=== PATIENT | female | born 2000 | race Caucasian/White ===

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

== ENCOUNTER 2023-09-05 08:17 | Emergency (ER) | payer OTHER ==
[~2023-09-05] VITALS: Ht 157.5 cm; Wt 86.4 kg
[2023-09-05 08:19] VITALS: TEMP 99
[2023-09-05] MEDS: LORazepam 1 MG TABLET PO ONE (09:20)
[2023-09-05 12:15] VITALS: BP 135/78; PULSE 85; RESP 18
== END 2023-09-05 12:32 | disposition home or self-care (01) ==
LOC: EMS 08:17
DX: F41.9 Anxiety disorder, unspecified (principal); F32.A Depression, unspecified
CPT/HCPCS: 99283

== ENCOUNTER 2024-03-04 18:44 | Emergency (ER) | payer OTHER ==
[~2024-03-04] VITALS: Ht 162.6 cm; Wt 97.7 kg
[2024-03-04 19:02] LABS: COVID AG,FIA SOURCE NASAL SWAB
[2024-03-04 19:21] LABS: SARS-COV2 (COVID) ANTIGEN,FIA Negative (Negative)
[2024-03-04 19:25] LABS: INFLUENZA TYPE A NEGATIVE FOR TYPE A (NEGATIVE); INFLUENZA TYPE B NEGATIVE FOR TYPE B (NEGATIVE)
[2024-03-04] MEDS: IBUPROFEN 600 MG TABLET PO ONE (19:28)
[2024-03-04 20:00] VITALS: BP 134/83; PULSE 87; RESP 18; TEMP 98.7; O2SAT 98
== END 2024-03-04 20:03 | disposition home or self-care (01) ==
LOC: EMS 18:44
DX: J06.9 Acute upper respiratory infection, unspecified (principal); B97.89 Other viral agents as the cause of diseases classified elsewhere; J45.909 Unspecified asthma, uncomplicated; Z20.822 Contact with and (suspected) exposure to COVID-19
CPT/HCPCS: 87804; 99283

== ENCOUNTER 2025-01-12 00:40 | Emergency (ER) | payer OTHER ==
[~2025-01-12] VITALS: Ht 160 cm; Wt 94.8 kg
[2025-01-12] MEDS ORDERED: LIDO-57 TP (02:52)
[2025-01-12] MEDS ORDERED: CYCL-448 PO (02:52)
[2025-01-12] MEDS: KETOROLAC TROMETHAMINE 30 MG/ML VIAL IM ONE (03:02)
[2025-01-12] MEDS: LIDOCAINE 5% TRANSDERMAL PATCH TD ONE (03:02)
[2025-01-12 03:10] VITALS: BP 133/85; PULSE 72; RESP 15; TEMP 98.3; O2SAT 99
[2025-01-12] MEDS ORDERED: IBUP-1492 PO (17:44)
[2025-01-12] MEDS ORDERED: METH-659 PO (17:44)
== END 2025-01-12 04:48 | disposition home or self-care (01) ==
LOC: EMS 00:40
DX: S16.1XXA Strain of muscle, fascia and tendon at neck level, initial encounter (principal); F41.9 Anxiety disorder, unspecified; F32.A Depression, unspecified; V43.62XA Car passenger injured in collision with other type car in traffic accident, initial encounter; Y93.89 Activity, other specified; Y92.410 Unspecified street and highway as the place of occurrence of the external cause; Y99.8 Other external cause status
CPT/HCPCS: 99283; 72040; 96372; J1885

== ENCOUNTER 2025-01-12 14:03 | Emergency (ER) | payer OTHER ==
[~2025-01-12] VITALS: Ht 160 cm; Wt 94.0 kg
[~2025-01-12 14:03] MED LIST: CYCL-448 PO; LIDO-57 TP
[2025-01-12 14:20] VITALS: BP 110/63; PULSE 67; RESP 18; TEMP 98.2; O2SAT 99
[2025-01-12] MEDS: IBUPROFEN 600 MG TABLET PO ONE (15:32)
[2025-01-12] MEDS ORDERED: IBUP-1492 PO (17:44)
[2025-01-12] MEDS ORDERED: METH-659 PO (17:44)
== END 2025-01-12 18:02 | disposition home or self-care (01) ==
LOC: EMS 14:16
DX: S16.1XXA Strain of muscle, fascia and tendon at neck level, initial encounter (principal); F41.9 Anxiety disorder, unspecified; F32.A Depression, unspecified; V89.2XXA Person injured in unspecified motor-vehicle accident, traffic, initial encounter; Y93.89 Activity, other specified; Y92.410 Unspecified street and highway as the place of occurrence of the external cause; Y99.8 Other external cause status
CPT/HCPCS: 72040; 99283

== ENCOUNTER 2025-02-17 15:03 | Emergency (ER) | payer OTHER ==
[~2025-02-17] VITALS: Ht 165.1 cm; Wt 96.2 kg
[~2025-02-17 15:03] MED LIST changes: +IBUP-1492 PO; +METH-659 PO
[2025-02-17 15:10] VITALS: TEMP 98.6
[2025-02-17 15:50] LABS: PLATELET COUNT (AUTO) 141 K/uL (150-450); RED BLOOD CELL COUNT(AUTO) 4.37 MIL/uL (4.00-5.20); RED CELL DISTRIBUTION WIDTH 13.0 % (11.5-14.5); WHITE BLOOD COUNT (AUTO) 6.7 K/uL (4.5-11.0)
[2025-02-17] MEDS: ACETAMINOPHEN 500 MG TABLET PO ONE (15:51)
[2025-02-17] MEDS: IBUPROFEN 600 MG TABLET PO ONE (15:51)
[2025-02-17 15:59] LABS: CALCIUM, TOTAL 8.9 mg/dL (8.8-10.5); CREATININE 0.40 mg/dL (0.60-1.30); GLOMERULAR FILTR. RATE CALC > 60 mL/min (>60); GLUCOSE,RANDOM 86 mg/dL (70-110); SODIUM SERUM 141 mmol/L (136-145); UREA NITROGEN, BLOOD 13 mg/dL (7-18)
[2025-02-17 16:04] LABS: ASPARTATE AMINOTRANSFERASE 35.0 U/L (15-37); TOTAL PROTEIN, SERUM 7.2 g/dL (6.4-8.2)
[2025-02-17 16:05] LABS: APPEARANCE,URINE HAZY (CLEAR); GLUCOSE, URINE (UA) NEGATIVE (NEGATIVE); LEUKOCYTE ESTERASE ,URINE LARGE (NEGATIVE); NITRATE,URINE NEGATIVE (NEGATIVE); OCCULT BLOOD,URINE NEGATIVE (NEGATIVE); SPECIFIC GRAVITIY, URINE 1.030 (1.003-1.030)
[2025-02-17 16:08] LABS: HCG,QUANTITATIVE < 1 mIU/mL (0-6)
[2025-02-17 16:19] LABS: AMORPHOUS SEDIMENT,UR Many /LPF (None Seen); SQUAMOUS EPITHELIAL CELL,UR Moderate /LPF (None Seen)
[2025-02-17] MEDS: CEFPODOXIME PROXETIL 200 MG TABLET PO ONE (17:08)
[2025-02-17] MEDS ORDERED: CEFP200T12 PO (17:10)
[2025-02-17] MEDS ORDERED: IBUP-1492 PO (17:10)
[2025-02-17 17:48] VITALS: BP 128/64; PULSE 73; RESP 18; O2SAT 97
== END 2025-02-17 17:55 | disposition home or self-care (01) ==
LOC: EMS 15:07
DX: N12 Tubulo-interstitial nephritis, not specified as acute or chronic (principal); R10.9 Unspecified abdominal pain; F41.9 Anxiety disorder, unspecified; F32.A Depression, unspecified; Z79.899 Other long term (current) drug therapy
CPT/HCPCS: 80048; 80076; 81001; 83690; 84702; 85025; 87086; 99284